=== PATIENT | male | born 1930 | race Caucasian/White ===

== ENCOUNTER 2019-02-17 06:04 | Inpatient (IN) | payer MEDICARE, OTHER ==
[2019-02-17] MEDS: DEXTROSE 50% 50 ML SYRINGE IV (07:04)
[2019-02-17] MEDS ORDERED: NACL 0.9% 3 ML SYG IV (11:00)
[2019-02-17] MEDS ORDERED: ACETAMINOPHEN 325 MG TAB PO (11:00)
[2019-02-17] MEDS: INSULIN ASPART [NOVOLOG] 3 ML PEN SC ×3 (12:00→21:00)
[2019-02-17] MEDS: ONDANSETRON 4 MG INJ IV (16:45)
[2019-02-17] MEDS: FUROSEMIDE 40 MG INJ IV (16:45)
[2019-02-17] MEDS: TAMSULOSIN (SR) 0.4 MG CAP PO (21:00)
[2019-02-17] MEDS: ATORVASTATIN 40 MG TAB PO (21:00)
[2019-02-17] MEDS: DOCUSATE SODIUM 100 MG CAP PO (21:24)
[2019-02-17] MEDS: LISINOPRIL 5 MG TAB PO (21:27)
[2019-02-17] MEDS: FAMOTIDINE 20 MG TAB PO (21:27)
[2019-02-17] MEDS: INSULIN GLARGINE [LANTus] (100 UNITS/ML) SYG SC (21:33)
[2019-02-18] MEDS: ACCU-CHEK XX ×2 (02:00→20:08)
[2019-02-18] MEDS ORDERED: GLUCOSE GEL 15 GRAM TUBE PO ×2 (03:00)
[2019-02-18] MEDS ORDERED: GLUCOSE GEL 15 GRAM TUBE BUCCAL (03:00)
[2019-02-18] MEDS ORDERED: GLUCAGON 1 MG INJ IM (03:00)
[2019-02-18] MEDS: INSULIN ASPART [NOVOLOG] 3 ML PEN SC ×4 (07:35→20:08)
[2019-02-18] MEDS: FERROUS SULFATE (EC) 325 MG TAB PO (08:43)
[2019-02-18] MEDS: DOCUSATE SODIUM 100 MG CAP PO ×2 (08:43→20:17)
[2019-02-18] MEDS: LISINOPRIL 5 MG TAB PO ×2 (08:45→20:17)
[2019-02-18] MEDS: FAMOTIDINE 20 MG TAB PO ×2 (08:45→20:16)
[2019-02-18] MEDS: METOPROLOL (XL) 25 MG TAB PO ×2 (08:46→20:15)
[2019-02-18] MEDS: CHOLECALCIFEROL 1,000 UNIT TAB PO (08:46)
[2019-02-18] MEDS: ENOXAPARIN 40 MG/0.4 ML SYG SC (08:48)
[2019-02-18] MEDS ORDERED: ASPIRIN (EC) 81 MG TAB PO (09:00)
[2019-02-18] MEDS: FINASTERIDE 5 MG TAB PO (16:04)
[2019-02-18] MEDS: FUROSEMIDE 20 MG INJ IV (17:50)
[2019-02-18] MEDS: INSULIN GLARGINE [LANTus] (100 UNITS/ML) SYG SC (20:16)
[2019-02-18] MEDS: TAMSULOSIN (SR) 0.4 MG CAP PO (20:16)
[2019-02-18] MEDS: ATORVASTATIN 40 MG TAB PO (20:17)
[2019-02-19] MEDS: INSULIN ASPART [NOVOLOG] 3 ML PEN SC ×4 (08:00→21:00)
[2019-02-19] MEDS: METOPROLOL (XL) 25 MG TAB PO ×2 (08:33→20:13)
[2019-02-19] MEDS: FAMOTIDINE 20 MG TAB PO ×2 (08:33→20:12)
[2019-02-19] MEDS: CHOLECALCIFEROL 1,000 UNIT TAB PO (08:33)
[2019-02-19] MEDS: FERROUS SULFATE (EC) 325 MG TAB PO (08:33)
[2019-02-19] MEDS: DOCUSATE SODIUM 100 MG CAP PO ×2 (08:33→20:11)
[2019-02-19] MEDS: FINASTERIDE 5 MG TAB PO (08:37)
[2019-02-19] MEDS: LISINOPRIL 5 MG TAB PO ×2 (08:37→20:13)
[2019-02-19] MEDS: ENOXAPARIN 40 MG/0.4 ML SYG SC (09:00)
[2019-02-19] MEDS ORDERED: FUROSEMIDE 20 MG INJ IV (09:00)
[2019-02-19] MEDS: SOD FERRIC GLUC COMPLX 125 MG in SOD CHLORIDE 0.9% 100 ML IVPB ×2 (13:24→14:28)
[2019-02-19] MEDS: NA PHOSPHATE/BIPHOS 133 ML ENEMA PR (18:38)
[2019-02-19] MEDS: CEFAZOLIN 2 GM/50 ML (PMX) 50 ML IVPB (19:59)
[2019-02-19] MEDS: TAMSULOSIN (SR) 0.4 MG CAP PO (20:11)
[2019-02-19] MEDS: ATORVASTATIN 40 MG TAB PO (20:12)
[2019-02-19] MEDS: INSULIN GLARGINE [LANTus] (100 UNITS/ML) SYG SC (20:20)
[2019-02-19] MEDS: DEXTROSE 5%-0.45% NACL 1,000 ML IV (22:58)
[2019-02-20] MEDS: INSULIN ASPART [NOVOLOG] 3 ML PEN SC ×6 (01:00→20:36)
[2019-02-20] MEDS: ACCU-CHEK XX (01:37)
[2019-02-20] MEDS: FINASTERIDE 5 MG TAB PO (09:00)
[2019-02-20] MEDS: CHOLECALCIFEROL 1,000 UNIT TAB PO (09:00)
[2019-02-20] MEDS: DOCUSATE SODIUM 100 MG CAP PO ×2 (09:00→20:24)
[2019-02-20] MEDS: FAMOTIDINE 20 MG TAB PO ×2 (09:00→21:00)
[2019-02-20] MEDS: METOPROLOL (XL) 25 MG TAB PO ×2 (09:00→20:25)
[2019-02-20] MEDS: FERROUS SULFATE (EC) 325 MG TAB PO (09:00)
[2019-02-20] MEDS: LISINOPRIL 5 MG TAB PO ×2 (09:00→20:24)
[2019-02-20] MEDS ORDERED: FUROSEMIDE 20 MG TAB PO (09:00)
[2019-02-20] MEDS: DEXTROSE 50% 50 ML SYRINGE IV (12:11)
[2019-02-20] MEDS: SOD FERRIC GLUC COMPLX 125 MG in SOD CHLORIDE 0.9% 100 ML IVPB (12:11)
[2019-02-20] MEDS: DEXTROSE 5%-0.9% NACL 1,000 ML IV (13:00)
[2019-02-20] MEDS ORDERED: GELATIN SIZE 100 SPONGE (15:51)
[2019-02-20] MEDS ORDERED: THROMBIN 5000 UNIT (RECOTHROM) VIAL (15:51)
[2019-02-20] MEDS ORDERED: FENTAnyl 50 MCG/ML VIAL IV (16:00)
[2019-02-20] MEDS ORDERED: LABETALOL HCL 20MG INJ IV (16:00)
[2019-02-20] MEDS ORDERED: HYDROmorphONE 1 MG/5 ML IV SYRINGE IV ×2 (16:00)
[2019-02-20] MEDS ORDERED: hydrALAzine 20 MG INJ IV (16:00)
[2019-02-20] MEDS ORDERED: EPHEDrine 25 MG/5 ML SYG IV (16:00)
[2019-02-20] MEDS ORDERED: DEXTROSE 50% 50 ML SYRINGE (16:15)
[2019-02-20] MEDS ORDERED: morphine SULFATE/PF (10 MG/10 ML) INJ (16:27)
[2019-02-20] MEDS: POLYMYXIN/BACITRACIN 1L IRRIG (17:24)
[2019-02-20] MEDS ORDERED: ONDANSETRON 4 MG INJ (18:22)
[2019-02-20] MEDS: ONDANSETRON 4 MG INJ IV ×2 (19:47→22:12)
[2019-02-20] MEDS: SOD CHLORIDE 0.9% 1,000 ML IV (20:23)
[2019-02-20] MEDS: TAMSULOSIN (SR) 0.4 MG CAP PO (20:24)
[2019-02-20] MEDS: CEFAZOLIN 2 GM/50 ML (PMX) 50 ML IVPB (20:24)
[2019-02-20] MEDS: ATORVASTATIN 40 MG TAB PO (20:24)
[2019-02-20] MEDS: INSULIN GLARGINE [LANTus] (100 UNITS/ML) SYG SC (20:32)
[2019-02-21] MEDS: ACCU-CHEK XX (02:00)
[2019-02-21] MEDS ORDERED: ONDANSETRON 4 MG INJ IV (02:30)
[2019-02-21] MEDS: ONDANSETRON 4 MG INJ IV ×2 (05:23→20:15)
[2019-02-21] MEDS: morphine 2 MG INJ IV ×4 (05:24→18:54)
[2019-02-21] MEDS: CEFAZOLIN 2 GM/50 ML (PMX) 50 ML IVPB ×2 (06:04→17:38)
[2019-02-21] MEDS: SOD CHLORIDE 0.9% 1,000 ML IV ×2 (07:39→13:46)
[2019-02-21] MEDS: INSULIN ASPART [NOVOLOG] 3 ML PEN SC ×4 (08:00→21:00)
[2019-02-21] MEDS: FERROUS SULFATE (EC) 325 MG TAB PO (08:22)
[2019-02-21] MEDS: FAMOTIDINE 20 MG TAB PO ×2 (08:22→21:26)
[2019-02-21] MEDS: LISINOPRIL 5 MG TAB PO ×2 (08:23→21:23)
[2019-02-21] MEDS: CHOLECALCIFEROL 1,000 UNIT TAB PO (08:23)
[2019-02-21] MEDS: FINASTERIDE 5 MG TAB PO (08:23)
[2019-02-21] MEDS: METOPROLOL (XL) 25 MG TAB PO ×2 (08:24→21:23)
[2019-02-21] MEDS: DOCUSATE SODIUM 100 MG CAP PO ×2 (08:24→21:22)
[2019-02-21] MEDS: SOD FERRIC GLUC COMPLX 125 MG in SOD CHLORIDE 0.9% 100 ML IVPB (12:56)
[2019-02-21] MEDS: HYDROCODONE/APAP (5/325) TAB PO (17:35)
[2019-02-21] MEDS: LORAZEPAM 2 MG INJ IV (20:09)
[2019-02-21] MEDS: INSULIN GLARGINE [LANTus] (100 UNITS/ML) SYG SC (20:18)
[2019-02-21] MEDS: TAMSULOSIN (SR) 0.4 MG CAP PO (21:22)
[2019-02-21] MEDS: ATORVASTATIN 40 MG TAB PO (21:22)
[2019-02-22] MEDS: ACCU-CHEK XX (02:00)
[2019-02-22] MEDS: morphine 2 MG INJ IV (02:05)
[2019-02-22] MEDS: CEFAZOLIN 2 GM/50 ML (PMX) 50 ML IVPB (05:40)
[2019-02-22] MEDS: DEXTROSE 50% 50 ML SYRINGE IV (07:16)
[2019-02-22] MEDS: INSULIN ASPART [NOVOLOG] 3 ML PEN SC ×4 (08:00→20:56)
[2019-02-22] MEDS: FAMOTIDINE 20 MG TAB PO ×2 (08:25→20:58)
[2019-02-22] MEDS: CHOLECALCIFEROL 1,000 UNIT TAB PO (08:25)
[2019-02-22] MEDS: METOPROLOL (XL) 25 MG TAB PO ×2 (08:32→20:59)
[2019-02-22] MEDS: DOCUSATE SODIUM 100 MG CAP PO ×2 (08:33→20:58)
[2019-02-22] MEDS: FINASTERIDE 5 MG TAB PO (08:33)
[2019-02-22] MEDS: FERROUS SULFATE (EC) 325 MG TAB PO (08:33)
[2019-02-22] MEDS: ASPIRIN 81 MG TAB PO (08:33)
[2019-02-22] MEDS: ENOXAPARIN 40 MG/0.4 ML SYG SC (08:36)
[2019-02-22] MEDS: ATORVASTATIN 40 MG TAB PO (20:58)
[2019-02-22] MEDS: TAMSULOSIN (SR) 0.4 MG CAP PO (20:58)
[2019-02-23] MEDS: ACCU-CHEK XX (02:00)
[2019-02-23] MEDS: morphine 2 MG INJ IV (02:21)
[2019-02-23] MEDS: INSULIN ASPART [NOVOLOG] 3 ML PEN SC ×4 (08:00→21:00)
[2019-02-23] MEDS: FINASTERIDE 5 MG TAB PO (08:18)
[2019-02-23] MEDS: FAMOTIDINE 20 MG TAB PO ×2 (08:18→21:16)
[2019-02-23] MEDS: LINAGLIPTIN 5 MG TABLET PO (08:18)
[2019-02-23] MEDS: FERROUS SULFATE (EC) 325 MG TAB PO (08:18)
[2019-02-23] MEDS: DOCUSATE SODIUM 100 MG CAP PO ×2 (08:18→21:16)
[2019-02-23] MEDS: ASPIRIN 81 MG TAB PO (08:18)
[2019-02-23] MEDS: CHOLECALCIFEROL 1,000 UNIT TAB PO (08:18)
[2019-02-23] MEDS: HEPARIN 5,000 UNIT/1 ML VIAL SC ×2 (08:20→21:18)
[2019-02-23] MEDS: METOPROLOL (XL) 25 MG TAB PO ×2 (08:27→21:16)
[2019-02-23] MEDS ORDERED: CEFTRIAXONE 2 GM/50 ML (PMX) 50 ML IVPB (14:00)
[2019-02-23] MEDS: CEFEPIME 2GM/50 ML (PMX) 50 ML IVPB ×2 (14:13→21:12)
[2019-02-23] MEDS ORDERED: TAMSULOSIN (SR) 0.4 MG CAP PO (21:00)
[2019-02-23] MEDS: TAMSULOSIN (SR) 0.4 MG CAP PO (21:16)
[2019-02-23] MEDS: ATORVASTATIN 40 MG TAB PO (21:16)
[2019-02-24] MEDS: morphine 2 MG INJ IV ×2 (00:36→04:20)
[2019-02-24] MEDS: ACCU-CHEK XX (02:00)
[2019-02-24] MEDS: INSULIN ASPART [NOVOLOG] 3 ML PEN SC ×4 (08:11→21:00)
[2019-02-24] MEDS: HEPARIN 5,000 UNIT/1 ML VIAL SC ×2 (08:12→21:35)
[2019-02-24] MEDS: CHOLECALCIFEROL 1,000 UNIT TAB PO (08:13)
[2019-02-24] MEDS: FERROUS SULFATE (EC) 325 MG TAB PO (08:13)
[2019-02-24] MEDS: ASPIRIN 81 MG TAB PO (08:13)
[2019-02-24] MEDS: FAMOTIDINE 20 MG TAB PO ×2 (08:13→21:35)
[2019-02-24] MEDS: LINAGLIPTIN 5 MG TABLET PO (08:13)
[2019-02-24] MEDS: FINASTERIDE 5 MG TAB PO (08:13)
[2019-02-24] MEDS: DOCUSATE SODIUM 100 MG CAP PO ×2 (08:13→21:35)
[2019-02-24] MEDS: METOPROLOL (XL) 25 MG TAB PO ×2 (08:15→21:34)
[2019-02-24] MEDS: CEFEPIME 2GM/50 ML (PMX) 50 ML IVPB ×2 (08:57→21:35)
[2019-02-24] MEDS: FLUCONAZOLE 100 MG TAB PO (12:20)
[2019-02-24] MEDS: TAMSULOSIN (SR) 0.4 MG CAP PO (21:34)
[2019-02-24] MEDS: ATORVASTATIN 40 MG TAB PO (21:35)
[2019-02-25] MEDS: ACCU-CHEK XX (01:52)
[2019-02-25] MEDS: INSULIN ASPART [NOVOLOG] 3 ML PEN SC ×4 (08:33→21:18)
[2019-02-25] MEDS: HEPARIN 5,000 UNIT/1 ML VIAL SC ×2 (08:35→21:18)
[2019-02-25] MEDS: DOCUSATE SODIUM 100 MG CAP PO ×2 (08:36→21:16)
[2019-02-25] MEDS: ASPIRIN 81 MG TAB PO (08:36)
[2019-02-25] MEDS: FAMOTIDINE 20 MG TAB PO ×2 (08:36→21:16)
[2019-02-25] MEDS: FINASTERIDE 5 MG TAB PO (08:36)
[2019-02-25] MEDS: LINAGLIPTIN 5 MG TABLET PO (08:36)
[2019-02-25] MEDS: FERROUS SULFATE (EC) 325 MG TAB PO (08:36)
[2019-02-25] MEDS: CHOLECALCIFEROL 1,000 UNIT TAB PO (08:36)
[2019-02-25] MEDS: FLUCONAZOLE 100 MG TAB PO (08:36)
[2019-02-25] MEDS: METOPROLOL (XL) 25 MG TAB PO ×2 (08:37→21:16)
[2019-02-25] MEDS: CEFEPIME 2GM/50 ML (PMX) 50 ML IVPB ×2 (08:43→21:19)
[2019-02-25] MEDS: ALBUTEROL/IPRATROPIUM (NEB) 3 ML AMP HHN ×2 (18:00→20:11)
[2019-02-25] MEDS: FUROSEMIDE 20 MG INJ IV ×2 (18:46→21:22)
[2019-02-25] MEDS: ATORVASTATIN 40 MG TAB PO (21:16)
[2019-02-25] MEDS: TAMSULOSIN (SR) 0.4 MG CAP PO (21:16)
[2019-02-26] MEDS: ALBUTEROL/IPRATROPIUM (NEB) 3 ML AMP HHN ×4 (00:58→20:55)
[2019-02-26] MEDS: LORAZEPAM 2 MG INJ IV (02:20)
[2019-02-26] MEDS: ACCU-CHEK XX (02:20)
[2019-02-26] MEDS: FUROSEMIDE 20 MG INJ IV ×3 (05:31→17:34)
[2019-02-26] MEDS: FERROUS SULFATE (EC) 325 MG TAB PO (08:17)
[2019-02-26] MEDS: LINAGLIPTIN 5 MG TABLET PO (08:17)
[2019-02-26] MEDS: ASPIRIN 81 MG TAB PO (08:17)
[2019-02-26] MEDS: FLUCONAZOLE 100 MG TAB PO (08:18)
[2019-02-26] MEDS: DOCUSATE SODIUM 100 MG CAP PO ×2 (08:18→21:28)
[2019-02-26] MEDS: CHOLECALCIFEROL 1,000 UNIT TAB PO (08:18)
[2019-02-26] MEDS: FAMOTIDINE 20 MG TAB PO ×2 (08:18→21:29)
[2019-02-26] MEDS: FINASTERIDE 5 MG TAB PO (08:18)
[2019-02-26] MEDS: METOPROLOL (XL) 25 MG TAB PO ×2 (08:18→21:28)
[2019-02-26] MEDS: HEPARIN 5,000 UNIT/1 ML VIAL SC ×2 (08:29→21:00)
[2019-02-26] MEDS: INSULIN ASPART [NOVOLOG] 3 ML PEN SC ×6 (08:29→21:00)
[2019-02-26] MEDS: HALOPERIDOL 5 MG INJ IM ×2 (10:21→14:17)
[2019-02-26] MEDS: CEFEPIME 2GM/50 ML (PMX) 50 ML IVPB (12:35)
[2019-02-26] MEDS: INSULIN GLARGINE [LANTus] (100 UNITS/ML) SYG SC (12:40)
[2019-02-26] MEDS ORDERED: HALOPERIDOL 5 MG INJ IM (13:30)
[2019-02-26] MEDS: ATORVASTATIN 40 MG TAB PO (21:28)
[2019-02-26] MEDS: TAMSULOSIN (SR) 0.4 MG CAP PO (21:28)
[2019-02-27] MEDS: ALBUTEROL/IPRATROPIUM (NEB) 3 ML AMP HHN ×6 (00:10→21:08)
[2019-02-27] MEDS: LORAZEPAM 2 MG INJ IV ×2 (01:07→12:39)
[2019-02-27] MEDS: ACCU-CHEK XX (02:00)
[2019-02-27] MEDS: FUROSEMIDE 20 MG INJ IV ×3 (06:04→17:24)
[2019-02-27] MEDS: INSULIN ASPART [NOVOLOG] 3 ML PEN SC ×6 (07:40→17:24)
[2019-02-27] MEDS: FAMOTIDINE 20 MG TAB PO ×2 (08:06→20:09)
[2019-02-27] MEDS: DOCUSATE SODIUM 100 MG CAP PO ×2 (08:06→20:09)
[2019-02-27] MEDS: FINASTERIDE 5 MG TAB PO (08:06)
[2019-02-27] MEDS: FERROUS SULFATE (EC) 325 MG TAB PO (08:06)
[2019-02-27] MEDS: FLUCONAZOLE 100 MG TAB PO (08:06)
[2019-02-27] MEDS: CHOLECALCIFEROL 1,000 UNIT TAB PO (08:07)
[2019-02-27] MEDS: ASPIRIN 81 MG TAB PO (08:07)
[2019-02-27] MEDS: METOPROLOL (XL) 25 MG TAB PO ×2 (08:07→20:09)
[2019-02-27] MEDS: LIDOCAINE 1% (MPF) 5 ML VIAL (10:20)
[2019-02-27] MEDS: QUETIAPINE 25 MG TAB PO (11:28)
[2019-02-27] MEDS: METOLAZONE 2.5 MG TAB PO (11:28)
[2019-02-27] MEDS: metroNIDAZOLE 500 MG TAB PO ×2 (11:28→17:24)
[2019-02-27] MEDS: LINAGLIPTIN 5 MG TABLET PO (11:30)
[2019-02-27] MEDS: INSULIN GLARGINE [LANTus] (100 UNITS/ML) SYG SC (11:35)
[2019-02-27] MEDS: CEFEPIME 2GM/50 ML (PMX) 50 ML IVPB (12:44)
[2019-02-27] MEDS: DEXTROSE 50% 50 ML SYRINGE IV (17:19)
[2019-02-27] MEDS: TAMSULOSIN (SR) 0.4 MG CAP PO (20:09)
[2019-02-27] MEDS: ATORVASTATIN 40 MG TAB PO (20:09)
[2019-02-27] MEDS: DEXTROSE 5%-0.45% NACL 1,000 ML IV (20:13)
[2019-02-27] MEDS: HEPARIN 5,000 UNIT/1 ML VIAL SC (21:49)
[2019-02-27] MEDS: metroNIDAZOLE 500 MG/NS (PMX) 100 ML IVPB (21:53)
[2019-02-28] MEDS: DEXTROSE 50% 50 ML SYRINGE IV (00:15)
[2019-02-28] MEDS: ACCU-CHEK XX (01:02)
[2019-02-28] MEDS: ALBUTEROL/IPRATROPIUM (NEB) 3 ML AMP HHN ×3 (01:35→08:01)
[2019-02-28] MEDS: DEXTROSE 10% 1,000 ML IV ×2 (01:43→21:30)
[2019-02-28] MEDS: FUROSEMIDE 20 MG INJ IV (05:02)
[2019-02-28] MEDS: metroNIDAZOLE 500 MG/NS (PMX) 100 ML IVPB (05:02)
[2019-02-28] MEDS: INSULIN ASPART [NOVOLOG] 3 ML PEN SC ×4 (06:00→17:37)
[2019-02-28] MEDS ORDERED: METOPROLOL 5 MG INJ IV ×2 (09:00→14:00)
[2019-02-28] MEDS ORDERED: HALOPERIDOL 5 MG INJ IV (09:00)
[2019-02-28] MEDS: FERROUS SULFATE (EC) 325 MG TAB PO (09:00)
[2019-02-28] MEDS: CHOLECALCIFEROL 1,000 UNIT TAB PO (09:00)
[2019-02-28] MEDS: DOCUSATE SODIUM 100 MG CAP PO ×2 (09:00→20:30)
[2019-02-28] MEDS: FAMOTIDINE 20 MG TAB PO ×2 (09:00→20:30)
[2019-02-28] MEDS: ASPIRIN 81 MG TAB PO (09:00)
[2019-02-28] MEDS: LINAGLIPTIN 5 MG TABLET PO (09:00)
[2019-02-28] MEDS: FINASTERIDE 5 MG TAB PO (09:00)
[2019-02-28] MEDS ORDERED: ALBUMIN HUMAN 25% 100 ML (09:18)
[2019-02-28] MEDS: ALBUMIN HUMAN 25% 100 ML IV (09:23)
[2019-02-28] MEDS ORDERED: LEVALBUTEROL (NEB) 0.63 MG/3 ML AMP HHN (10:00)
[2019-02-28] MEDS ORDERED: NORepinephrine 8MG/250 ML (PMX 250 ML IV (10:00)
[2019-02-28] MEDS ORDERED: IPRATROPIUM (NEB) 0.5 MG/2.5 ML AMP HHN (10:00)
[2019-02-28] MEDS ORDERED: AMIODARONE 150MG/D5W BOLUS 100 ML (10:01)
[2019-02-28] MEDS: POTASSIUM CHLORIDE 100 ML IVPB ×4 (10:03→17:01)
[2019-02-28] MEDS: AMIODARONE 150MG/D5W BOLUS 100 ML IV (10:23)
[2019-02-28] MEDS ORDERED: VANCOMYCIN IV PER PHARMACY XX (10:30)
[2019-02-28] MEDS ORDERED: PIPER-TAZO 3.375 GM IV (PMX) 100 ML IVPB (12:00)
[2019-02-28] MEDS ORDERED: AMIODARONE 900 MG in DEXTROSE 5% 482 ML IV (12:00)
[2019-02-28] MEDS ORDERED: HEPARIN 1000 UNITS/ML 10 ML INJ IV ×2 (12:30)
[2019-02-28] MEDS: AMIODARONE 900 MG in DEXTROSE 5% 482 ML IV (12:37)
[2019-02-28] MEDS: ALBUMIN HUMAN 25% 50 ML IV (12:46)
[2019-02-28] MEDS: HEPARIN 25000 UNITS/250 ML 250 ML IV (13:00)
[2019-02-28] MEDS: DIGOXIN 500 MCG INJ IV (13:06)
[2019-02-28] MEDS: VANCOMYCIN 1 GM 250 ML IVPB (13:19)
[2019-02-28] MEDS: MAGNESIUM SULFATE 1 GM/D5W 100 ML IVPB (14:20)
[2019-02-28] MEDS: PIPER-TAZO 2.25 GM/NS 50 ML IVPB ×2 (14:37→18:52)
[2019-02-28] MEDS: ATORVASTATIN 40 MG TAB PO (20:30)
[2019-02-28] MEDS: QUETIAPINE 25 MG TAB PO (20:30)
[2019-02-28] MEDS: TAMSULOSIN (SR) 0.4 MG CAP PO (20:30)
[2019-03-01] MEDS: PIPER-TAZO 2.25 GM/NS 50 ML IVPB ×5 (00:36→23:13)
[2019-03-01] MEDS: INSULIN ASPART [NOVOLOG] 3 ML PEN SC ×5 (00:36→23:05)
[2019-03-01] MEDS: DEXTROSE 5%-0.45% NACL 1,000 ML IV ×2 (01:32→18:14)
[2019-03-01] MEDS: ACCU-CHEK XX (02:00)
[2019-03-01] MEDS: POTASSIUM CHLORIDE 100 ML IVPB ×3 (05:00→09:30)
[2019-03-01] MEDS: FAMOTIDINE 20 MG TAB PO (09:00)
[2019-03-01] MEDS: FERROUS SULFATE (EC) 325 MG TAB PO (09:00)
[2019-03-01] MEDS: CHOLECALCIFEROL 1,000 UNIT TAB PO (09:00)
[2019-03-01] MEDS: DOCUSATE SODIUM 100 MG CAP PO (09:00)
[2019-03-01] MEDS: ASPIRIN 81 MG TAB PO (09:50)
[2019-03-01] MEDS: FINASTERIDE 5 MG TAB PO (09:50)
[2019-03-01] MEDS: LINAGLIPTIN 5 MG TABLET PO (09:51)
[2019-03-01] MEDS ORDERED: GLUCOSE GEL 15 GRAM TUBE PO ×2 (20:00)
[2019-03-01] MEDS ORDERED: DEXTROSE 50% 50 ML SYRINGE IV ×2 (20:00)
[2019-03-01] MEDS ORDERED: GLUCAGON 1 MG INJ IM (20:00)
[2019-03-01] MEDS ORDERED: GLUCOSE GEL 15 GRAM TUBE BUCCAL (20:00)
[2019-03-01] MEDS: LORAZEPAM 2 MG INJ IV ×2 (21:41→23:02)
[2019-03-01] MEDS: VANCOMYCIN 750 MG (PMX) 250 ML IVPB (23:29)
[2019-03-02] MEDS: ACCU-CHEK XX ×2 (02:22→21:43)
[2019-03-02] MEDS: DOCUSATE SODIUM 100 MG CAP PO ×3 (02:51→20:52)
[2019-03-02] MEDS: FAMOTIDINE 20 MG TAB PO ×3 (02:52→20:51)
[2019-03-02] MEDS: ATORVASTATIN 40 MG TAB PO ×2 (02:52→20:52)
[2019-03-02] MEDS: AMIODARONE 200 MG TAB PO ×3 (02:53→20:51)
[2019-03-02] MEDS: QUETIAPINE 25 MG TAB PO ×2 (02:53→20:52)
[2019-03-02] MEDS: TAMSULOSIN (SR) 0.4 MG CAP PO ×2 (02:53→20:52)
[2019-03-02] MEDS: PIPER-TAZO 2.25 GM/NS 50 ML IVPB (06:45)
[2019-03-02] MEDS: FERROUS SULFATE (EC) 325 MG TAB PO (09:00)
[2019-03-02] MEDS: DEXTROSE 5%-0.9% NACL 1,000 ML IV (09:32)
[2019-03-02] MEDS: ASPIRIN 81 MG TAB PO (09:36)
[2019-03-02] MEDS: FINASTERIDE 5 MG TAB PO (09:37)
[2019-03-02] MEDS: LINAGLIPTIN 5 MG TABLET PO (09:38)
[2019-03-02] MEDS: CHOLECALCIFEROL 1,000 UNIT TAB PO (09:38)
[2019-03-02] MEDS: INSULIN ASPART [NOVOLOG] 3 ML PEN SC ×4 (09:51→21:00)
[2019-03-02] MEDS ORDERED: POTASSIUM CHLORIDE (SR) 20 MEQ TAB PO (11:52)
[2019-03-02] MEDS ORDERED: POTASSIUM CHLORIDE 20 MEQ POWDER FOR ORAL SOLN (12:15)
[2019-03-02] MEDS: POTASSIUM CHLORIDE 20 MEQ POWDER FOR ORAL SOLN PO (12:31)
[2019-03-02] MEDS: MEROPENEM 500MG/50 ML (PMX) 50 ML IVPB ×2 (12:32→20:52)
[2019-03-02] MEDS: ZYVOX 600 MG TAB PO ×2 (12:33→20:52)
[2019-03-02] MEDS: APIXABAN 5 MG TABLET PO ×2 (12:33→20:51)
[2019-03-02] MEDS: morphine 2 MG INJ IV (20:48)
[2019-03-03] MEDS: INSULIN ASPART [NOVOLOG] 3 ML PEN SC ×4 (07:00→22:11)
[2019-03-03] MEDS: DEXTROSE 5%-0.9% NACL 1,000 ML IV (07:59)
[2019-03-03] MEDS: ZYVOX 600 MG TAB PO ×2 (08:28→22:13)
[2019-03-03] MEDS: ASPIRIN 81 MG TAB PO (08:29)
[2019-03-03] MEDS: FAMOTIDINE 20 MG TAB PO ×2 (08:29→22:14)
[2019-03-03] MEDS: DOCUSATE SODIUM 100 MG CAP PO ×2 (08:29→22:15)
[2019-03-03] MEDS: FERROUS SULFATE (EC) 325 MG TAB PO (08:29)
[2019-03-03] MEDS: CHOLECALCIFEROL 1,000 UNIT TAB PO (08:29)
[2019-03-03] MEDS: FINASTERIDE 5 MG TAB PO (08:29)
[2019-03-03] MEDS: APIXABAN 5 MG TABLET PO ×2 (08:29→22:13)
[2019-03-03] MEDS: LINAGLIPTIN 5 MG TABLET PO (08:29)
[2019-03-03] MEDS: AMIODARONE 200 MG TAB PO ×2 (08:29→22:14)
[2019-03-03] MEDS: MEROPENEM 500MG/50 ML (PMX) 50 ML IVPB ×2 (08:36→22:13)
[2019-03-03] MEDS: POTASSIUM CHLORIDE 20 MEQ POWDER FOR ORAL SOLN PO (11:41)
[2019-03-03] MEDS: ATORVASTATIN 40 MG TAB PO (22:13)
[2019-03-03] MEDS: TAMSULOSIN (SR) 0.4 MG CAP PO (22:13)
[2019-03-03] MEDS: QUETIAPINE 25 MG TAB PO (22:14)
[2019-03-03] MEDS: METOPROLOL (XL) 25 MG TAB PO (22:15)
[2019-03-04] MEDS: morphine 2 MG INJ IV (02:06)
[2019-03-04] MEDS: ACCU-CHEK XX (02:22)
[2019-03-04] MEDS: HYDROCODONE/APAP (5/325) TAB PO (02:50)
[2019-03-04] MEDS: HALOPERIDOL 5 MG INJ IM (04:52)
[2019-03-04] MEDS: LORAZEPAM 2 MG INJ IV (04:54)
[2019-03-04] MEDS: DIPHENHYDRAMINE 50 MG INJ IV (05:19)
[2019-03-04] MEDS: AMIODARONE 200 MG TAB PO ×2 (09:00→20:55)
[2019-03-04] MEDS: METOPROLOL (XL) 25 MG TAB PO ×2 (09:00→21:00)
[2019-03-04] MEDS: DOCUSATE SODIUM 100 MG CAP PO ×2 (09:00→20:55)
[2019-03-04] MEDS: LINAGLIPTIN 5 MG TABLET PO (09:00)
[2019-03-04] MEDS: FAMOTIDINE 20 MG TAB PO (09:00)
[2019-03-04] MEDS: APIXABAN 5 MG TABLET PO (09:00)
[2019-03-04] MEDS: ASPIRIN 81 MG TAB PO (09:00)
[2019-03-04] MEDS: CHOLECALCIFEROL 1,000 UNIT TAB PO (09:00)
[2019-03-04] MEDS: FINASTERIDE 5 MG TAB PO (09:00)
[2019-03-04] MEDS: FERROUS SULFATE (EC) 325 MG TAB PO (09:00)
[2019-03-04] MEDS: ZYVOX 600 MG TAB PO ×2 (09:00→20:54)
[2019-03-04] MEDS: DEXTROSE 5%-0.9% NACL 1,000 ML IV (09:18)
[2019-03-04] MEDS: MEROPENEM 500MG/50 ML (PMX) 50 ML IVPB ×2 (09:19→20:54)
[2019-03-04] MEDS: INSULIN ASPART [NOVOLOG] 3 ML PEN SC ×4 (09:21→20:54)
[2019-03-04] MEDS: ACETAMINOPHEN 325 MG TAB PO (16:45)
[2019-03-04] MEDS: FUROSEMIDE 20 MG INJ IV (16:46)
[2019-03-04] MEDS: LOSARTAN 25 MG TAB PO (16:46)
[2019-03-04] MEDS: ATORVASTATIN 40 MG TAB PO (20:54)
[2019-03-04] MEDS: TAMSULOSIN (SR) 0.4 MG CAP PO (20:55)
[2019-03-04] MEDS: QUETIAPINE 25 MG TAB PO (20:55)
[2019-03-05] MEDS: ACCU-CHEK XX (02:00)
[2019-03-05] MEDS: DEXTROSE 5%-0.9% NACL 1,000 ML IV (08:27)
[2019-03-05] MEDS: INSULIN ASPART [NOVOLOG] 3 ML PEN SC ×4 (08:31→21:00)
[2019-03-05] MEDS: CHOLECALCIFEROL 1,000 UNIT TAB PO (09:52)
[2019-03-05] MEDS: FINASTERIDE 5 MG TAB PO (09:53)
[2019-03-05] MEDS: FERROUS SULFATE (EC) 325 MG TAB PO (09:53)
[2019-03-05] MEDS: FAMOTIDINE 20 MG TAB PO (09:53)
[2019-03-05] MEDS: ASPIRIN 81 MG TAB PO (09:53)
[2019-03-05] MEDS: DOCUSATE SODIUM 100 MG CAP PO ×2 (09:53→21:52)
[2019-03-05] MEDS: LINAGLIPTIN 5 MG TABLET PO (09:55)
[2019-03-05] MEDS: LOSARTAN 25 MG TAB PO (09:56)
[2019-03-05] MEDS: AMIODARONE 200 MG TAB PO ×2 (09:56→21:52)
[2019-03-05] MEDS: METOPROLOL (XL) 25 MG TAB PO ×2 (09:56→21:49)
[2019-03-05] MEDS: TAMSULOSIN (SR) 0.4 MG CAP PO (21:49)
[2019-03-05] MEDS: ATORVASTATIN 40 MG TAB PO (21:52)
[2019-03-05] MEDS: QUETIAPINE 25 MG TAB PO (21:52)
[2019-03-06] MEDS: ACCU-CHEK XX (01:42)
[2019-03-06] MEDS: INSULIN ASPART [NOVOLOG] 3 ML PEN SC ×5 (07:00→21:53)
[2019-03-06] MEDS: FINASTERIDE 5 MG TAB PO (08:26)
[2019-03-06] MEDS: CHOLECALCIFEROL 1,000 UNIT TAB PO (08:26)
[2019-03-06] MEDS: BUMETANIDE 1 MG TAB PO (08:27)
[2019-03-06] MEDS: AMIODARONE 200 MG TAB PO ×2 (08:27→21:47)
[2019-03-06] MEDS: ASPIRIN 81 MG TAB PO (08:27)
[2019-03-06] MEDS: DOCUSATE SODIUM 100 MG CAP PO ×2 (08:28→21:47)
[2019-03-06] MEDS: LOSARTAN 25 MG TAB PO (08:28)
[2019-03-06] MEDS: FERROUS SULFATE (EC) 325 MG TAB PO (08:28)
[2019-03-06] MEDS: FAMOTIDINE 20 MG TAB PO (08:28)
[2019-03-06] MEDS: METOPROLOL (XL) 25 MG TAB PO ×2 (08:28→21:48)
[2019-03-06] MEDS: LINAGLIPTIN 5 MG TABLET PO (08:29)
[2019-03-06] MEDS: TAMSULOSIN (SR) 0.4 MG CAP PO (21:47)
[2019-03-06] MEDS: ATORVASTATIN 40 MG TAB PO (21:48)
[2019-03-06] MEDS: QUETIAPINE 25 MG TAB PO (21:48)
[2019-03-07] MEDS: ACCU-CHEK XX (02:00)
[2019-03-07] MEDS: INSULIN ASPART [NOVOLOG] 3 ML PEN SC ×4 (07:00→20:50)
[2019-03-07] MEDS ORDERED: POTASSIUM CHLORIDE (SR) 20 MEQ TAB PO (08:03)
[2019-03-07] MEDS: AMIODARONE 200 MG TAB PO (09:00)
[2019-03-07] MEDS: METOPROLOL (XL) 25 MG TAB PO ×2 (09:00→20:51)
[2019-03-07] MEDS: CHOLECALCIFEROL 1,000 UNIT TAB PO (09:27)
[2019-03-07] MEDS: LOSARTAN 25 MG TAB PO (09:27)
[2019-03-07] MEDS: ASPIRIN 81 MG TAB PO (09:27)
[2019-03-07] MEDS: FINASTERIDE 5 MG TAB PO (09:28)
[2019-03-07] MEDS: FAMOTIDINE 20 MG TAB PO (09:28)
[2019-03-07] MEDS: FERROUS SULFATE (EC) 325 MG TAB PO (09:28)
[2019-03-07] MEDS: BUMETANIDE 1 MG TAB PO (09:28)
[2019-03-07] MEDS: LINAGLIPTIN 5 MG TABLET PO (09:29)
[2019-03-07] MEDS: POTASSIUM CHLORIDE 20 MEQ POWDER FOR ORAL SOLN PO (09:37)
[2019-03-07] MEDS: DOCUSATE SODIUM 10 MG/ML (10ML CUP) PO ×2 (12:26→20:51)
[2019-03-07] MEDS: APIXABAN 5 MG TABLET PO ×2 (18:02→23:52)
[2019-03-07] MEDS: QUETIAPINE 25 MG TAB PO (20:51)
[2019-03-07] MEDS: ATORVASTATIN 40 MG TAB PO (20:51)
[2019-03-07] MEDS: TAMSULOSIN (SR) 0.4 MG CAP PO (20:51)
[2019-03-08] MEDS: ACCU-CHEK XX (02:00)
[2019-03-08] MEDS: INSULIN ASPART [NOVOLOG] 3 ML PEN SC ×4 (07:00→22:03)
[2019-03-08] MEDS: DOCUSATE SODIUM 10 MG/ML (10ML CUP) PO ×2 (09:10→21:37)
[2019-03-08] MEDS: CHOLECALCIFEROL 1,000 UNIT TAB PO (09:10)
[2019-03-08] MEDS: APIXABAN 5 MG TABLET PO ×2 (09:10→21:37)
[2019-03-08] MEDS: METOPROLOL (XL) 25 MG TAB PO ×2 (09:10→21:39)
[2019-03-08] MEDS: ASPIRIN 81 MG TAB PO (09:10)
[2019-03-08] MEDS: FINASTERIDE 5 MG TAB PO (09:11)
[2019-03-08] MEDS: FERROUS SULFATE (EC) 325 MG TAB PO (09:11)
[2019-03-08] MEDS: FAMOTIDINE 20 MG TAB PO (09:11)
[2019-03-08] MEDS: BUMETANIDE 1 MG TAB PO (09:11)
[2019-03-08] MEDS: LOSARTAN 25 MG TAB PO (09:11)
[2019-03-08] MEDS: LINAGLIPTIN 5 MG TABLET PO (09:11)
[2019-03-08] MEDS: AMIODARONE 200 MG TAB PO (09:26)
[2019-03-08] MEDS ORDERED: INSULIN GLARGINE [LANTus] (100 UNITS/ML) SYG SC (10:30)
[2019-03-08] MEDS: ATORVASTATIN 40 MG TAB PO (21:37)
[2019-03-08] MEDS: TAMSULOSIN (SR) 0.4 MG CAP PO (21:37)
[2019-03-08] MEDS: QUETIAPINE 25 MG TAB PO (21:37)
[2019-03-09] MEDS: ACCU-CHEK XX (02:00)
[2019-03-09] MEDS: INSULIN ASPART [NOVOLOG] 3 ML PEN SC ×4 (08:02→20:53)
[2019-03-09] MEDS: ASPIRIN 81 MG TAB PO (08:58)
[2019-03-09] MEDS: CHOLECALCIFEROL 1,000 UNIT TAB PO (08:58)
[2019-03-09] MEDS: LINAGLIPTIN 5 MG TABLET PO (08:58)
[2019-03-09] MEDS: FINASTERIDE 5 MG TAB PO (08:59)
[2019-03-09] MEDS: BUMETANIDE 1 MG TAB PO (08:59)
[2019-03-09] MEDS: FERROUS SULFATE (EC) 325 MG TAB PO (08:59)
[2019-03-09] MEDS: FAMOTIDINE 20 MG TAB PO (08:59)
[2019-03-09] MEDS: DOCUSATE SODIUM 10 MG/ML (10ML CUP) PO ×2 (09:00→20:34)
[2019-03-09] MEDS: METOPROLOL (XL) 25 MG TAB PO ×2 (09:00→20:34)
[2019-03-09] MEDS: LOSARTAN 25 MG TAB PO (09:00)
[2019-03-09] MEDS: APIXABAN 5 MG TABLET PO ×2 (09:00→20:34)
[2019-03-09] MEDS: AMIODARONE 200 MG TAB PO (09:00)
[2019-03-09] MEDS: QUETIAPINE 25 MG TAB PO ×2 (14:14→20:34)
[2019-03-09] MEDS: TAMSULOSIN (SR) 0.4 MG CAP PO (20:34)
[2019-03-09] MEDS: ATORVASTATIN 40 MG TAB PO (20:34)
[2019-03-10] MEDS: ACCU-CHEK XX (02:00)
[2019-03-10] MEDS: INSULIN ASPART [NOVOLOG] 3 ML PEN SC ×3 (07:55→18:28)
[2019-03-10] MEDS: LOSARTAN 25 MG TAB PO (09:00)
[2019-03-10] MEDS: DOCUSATE SODIUM 10 MG/ML (10ML CUP) PO (09:00)
[2019-03-10] MEDS: BUMETANIDE 1 MG TAB PO (09:55)
[2019-03-10] MEDS: LINAGLIPTIN 5 MG TABLET PO (09:55)
[2019-03-10] MEDS: FINASTERIDE 5 MG TAB PO (09:56)
[2019-03-10] MEDS: ASPIRIN 81 MG TAB PO (09:56)
[2019-03-10] MEDS: CHOLECALCIFEROL 1,000 UNIT TAB PO (09:56)
[2019-03-10] MEDS: FAMOTIDINE 20 MG TAB PO (09:56)
[2019-03-10] MEDS: QUETIAPINE 25 MG TAB PO (09:57)
[2019-03-10] MEDS: APIXABAN 5 MG TABLET PO (09:57)
[2019-03-10] MEDS: FERROUS SULFATE (EC) 325 MG TAB PO (09:57)
[2019-03-10] MEDS: AMIODARONE 200 MG TAB PO (09:58)
[2019-03-11] MEDS ORDERED: METOPROLOL (XL) 25 MG TAB PO (09:00)
== END 2019-03-10 19:03 | DRG 239 ==
LOC: REC 06:04 → PP2 02-19 06:13 → 6WM 02-25 23:37 → ICU 02-28 09:42 → REC 07:07 → PP2 02-20 14:30 → ICU 03-01 04:28 → 6WM 03-01 17:25 → MS3 10:22
PROC: 0Y6H0Z3 Detachment at Right Lower Leg, Low, Open Approach (ICD-10-PCS; principal; 2019-02-20 15:00)
PROC: 0W9B3ZZ Drainage of Left Pleural Cavity, Percutaneous Approach (ICD-10-PCS; 2019-02-20 16:23)
DX: E11.52 Type 2 diabetes mellitus with diabetic peripheral angiopathy with gangrene (principal); I50.23 Acute on chronic systolic (congestive) heart failure; J18.9 Pneumonia, unspecified organism; G92 Toxic encephalopathy; J96.01 Acute respiratory failure with hypoxia; I96 Gangrene, not elsewhere classified; N17.9 Acute kidney failure, unspecified; E87.1 Hypo-osmolality and hyponatremia; N39.0 Urinary tract infection, site not specified; J90 Pleural effusion, not elsewhere classified; F05 Delirium due to known physiological condition; I11.0 Hypertensive heart disease with heart failure; I48.91 Unspecified atrial fibrillation; Z95.1 Presence of aortocoronary bypass graft; B96.5 Pseudomonas (aeruginosa) (mallei) (pseudomallei) as the cause of diseases classified elsewhere; B96.4 Proteus (mirabilis) (morganii) as the cause of diseases classified elsewhere; B96.89 Other specified bacterial agents as the cause of diseases classified elsewhere; D50.9 Iron deficiency anemia, unspecified; N40.1 Benign prostatic hyperplasia with lower urinary tract symptoms; R33.8 Other retention of urine
CPT/HCPCS: 32555; 36600; 70450; 70551; 71045; 71250; 76775; 76942; 80048; 80053; 80061; 81001; 81003; 82043; 82140; 82550; 82553; 82607; 82803; 82947; 82962; 83036; 83540; 83605; 83735; 83880; 84100; 84155; 84300; 84436; 84443; 84479; 84484; 85025; 85610; 85730; 86850; 86900; 86901; 87040-91; 87081; 87086; 88307; 92526; 92610; 93005; 93306; 94640; 94664; 97110; 97162; 97530